=== PATIENT | male | born 1970 | race Caucasian/White ===

== ENCOUNTER 2017-03-13 23:22 | Emergency (ER) | payer OTHER ==
[~2017-03-13] VITALS: Ht 160 cm; Wt 74.8 kg
[~2017-03-13 23:22] MED LIST: BACLOFEN20 MG GT; BISAC-EVAC10 MG PR; CHILDREN'S160 MG/23 GT; DOCU LIQUI50 MG/5 ML GT; DUONEB 2.5-0.5 M3 ML AEROSOL; FLOVENT 11120 INHALA IH; HYFIBER WI GT; POLYETHYLENE GL17 GM GT; TENORMIN25 MG GT
[2017-03-14 00:16] LABS: HEMATOCRIT 47.4 % (38.0-50.0); MCH 28.5 PG (29.0-34.0); MCHC 32.1 G/DL (30.0-36.0); MCV 88.8 FL (86-99); RBC DIS.WIDTH-CV 14.1 % (11.8-14.6); RBC DIS.WIDTH-SD 45.4 % (39-53); RED BLOOD COUNT 5.34 M/uL (4.00-5.50); WHITE BLOOD COUNT 8.8 K/uL (4.1-10.2)
[2017-03-14 00:27] LABS: CHLORIDE 98 mEq/L (99-109); POTASSIUM 5.2 mEq/L (3.7-5.4); SODIUM 137 mEq/L (136-147)
[2017-03-14 00:29] LABS: GLUCOSE 94 mg/dL (70-99)
[2017-03-14 00:31] LABS: ANION GAP 8 MEQ/L (2-14); TOTAL BILIRUBIN 0.3 mg/dL (0.0-1.0)
[2017-03-14 00:33] LABS: ALKALINE PHOSPHATASE 85 IU/L (3-129); GFR ESTIMATE (CALCULATED) > 59 mL/min/
[2017-03-14 00:34] LABS: UREA NITROGEN (BUN) 19 mg/dL (9-23)
[2017-03-14 00:37] LABS: LIPASE 35 U/L (1.0-51.0)
[2017-03-14 01:12] LABS: PLAT.SUFFICIENCY ADEQUATE
[2017-03-14 01:13] LABS: PLATELET CLUMPS PRESENT - PLATELET C
[2017-03-14 04:29] VITALS: BP 105/68
== END 2017-03-14 04:30 ==
LOC: EME 23:22
PROVIDERS: Emergency Medicine
DX: R10.9 Unspecified abdominal pain (principal); Z43.1 Encounter for attention to gastrostomy; R40.3 Persistent vegetative state; Z87.820 Personal history of traumatic brain injury; Z93.0 Tracheostomy status
CPT/HCPCS: 74177; 80053; 81003; 83605; 83690; 85027; 99281; 99284; J7030

== ENCOUNTER 2017-06-25 09:34 | Day surgery (SDC) | payer OTHER ==
[~2017-06-25] VITALS: Ht 167.6 cm; Wt 75.0 kg
[~2017-06-25 09:34] MED LIST changes: +LISINOPRIL5 MG GT
[2017-06-25 10:33] LABS: METH RESISTANT S AUREUS PCR NEGATIVE (NEGATIVE); PROBE CHECK PASS; SPECIMEN PROCESSING CONTROL PASS
[2017-06-25 10:39] VITALS: BP 132/95
[2017-06-25 12:42] VITALS: BP 116/71
[2017-06-25 13:30] VITALS: BP 130/90
== END 2017-06-25 13:34 | disposition designated cancer center or children's hospital (05) ==
LOC: SDC 09:34
PROVIDERS: Surgery
PROC: 0D20XUZ Change Feeding Device in Upper Intestinal Tract, External Approach (ICD-10-PCS; principal; 2017-06-25)
DX: K94.23 Gastrostomy malfunction (principal); Z53.09 Procedure and treatment not carried out because of other contraindication; Z93.0 Tracheostomy status; S12.9XXS Fracture of neck, unspecified, sequela
CPT/HCPCS: 87641; B4087; J1580; J2250; J2405; J3010; J7050; S0030